=== PATIENT | female | born 1990 | race Caucasian/White ===

== ENCOUNTER 2018-05-13 12:49 | Outpatient (CLI) | payer OTHER ==
[~2018-05-13] VITALS: Ht 154.9 cm; Wt 74.1 kg
[2018-05-13 13:05] VITALS: BP 132/76; PULSE 96; TEMP 98.1
[2018-05-13] MEDS ORDERED: FLINTSTONES COM1 CT1 PO (13:10)
[2018-05-13 13:30] VITALS: BP 122/68; PULSE 93
[2018-05-13 15:20] VITALS: BP 123/72; PULSE 93
== END 2018-05-13 15:20 | disposition home or self-care (01) ==
LOC: LDRO 12:49
DX: O99.89 Other specified diseases and conditions complicating pregnancy, childbirth and the puerperium (principal); M54.89 Other dorsalgia; I10 Essential (primary) hypertension; Z3A.36 36 weeks gestation of pregnancy

== ENCOUNTER 2020-01-05 20:38 | Emergency (ER) | payer OTHER ==
[~2020-01-05] VITALS: Ht 157.5 cm; Wt 61.4 kg
[~2020-01-05 20:38] MED LIST: FLINTSTONES COM1 CT1 PO; MOTRIN 800800 MG/TAB PO; PERCOCET 325 MG1 TA2 PO
[2020-01-05 20:44] VITALS: BP 127/72; TEMP 98.6
[2020-01-05 21:03] LABS: STREP SCREEN NEGATIVE
[2020-01-05 21:22] VITALS: PULSE 90
== END 2020-01-05 21:22 | disposition home or self-care (01) ==
LOC: COL.ER 20:38
PROVIDERS: Family Medicine
DX: J02.9 Acute pharyngitis, unspecified (principal)

== ENCOUNTER 2021-10-24 13:31 | Outpatient (CLI) | payer BC ==
[~2021-10-24] VITALS: Ht 157.5 cm; Wt 72.7 kg
[~2021-10-24 13:31] MED LIST changes: +PREDNISONE20 MG PO
[2021-10-24 13:38] VITALS: BP 129/75; PULSE 96; TEMP 98.1
[2021-10-24 14:25] VITALS: BP 130/65; PULSE 89
--- NOTE | 2021-10-24 14:44 | NUR ---
[id number] PATIENT HERE WITH COMPLAINTS OF RECTAL PRESSURE. ASSESSMENT COMPLETED. EFM ON FHT 148 BABY VERY ACTIVE. NO CONTRACTIONS NOTED. SVE 0/THICK/HIGH. DR HENRY CALLED AND REPORT GIVEN. ORDERS TO DISMISS IF REACTIVE STRIP NOTED. PATIENT DENIES NEEDS.
--- NOTE | 2021-10-24 14:48 | NUR ---
NO CHANGES NOTED. ALL DISCHARGE INSTRUCTIONS GIVEN TO PATIENT WITH VERBAL UNDERSTANDING NOTED. DENIES NEEDS.
== END 2021-10-24 14:25 | disposition home or self-care (01) ==
LOC: LDRO 13:31 → LDR 13:48 → LDRO 14:25
DX: O26.893 Other specified pregnancy related conditions, third trimester (principal); K62.89 Other specified diseases of anus and rectum; Z3A.29 29 weeks gestation of pregnancy
CPT/HCPCS: OP

== ENCOUNTER 2021-12-24 19:57 | Outpatient (CLI) | payer BC ==
[~2021-12-24] VITALS: Ht 157.5 cm; Wt 77.3 kg
[2021-12-24 20:10] VITALS: TEMP 97.9
[2021-12-24 20:30] VITALS: BP 132/83; PULSE 105; TEMP 97.9
--- NOTE | 2021-12-24 20:45 | NUR ---
2000- 31 YO 38.2 WGA, AMBULATORY AND ACCOMPANIED BY SIG. OTHER, . RN ESCORTED TO ROOM AND INSTRUCTIONS GIVEN. PT ORIENTED TO ROOM. PT HERE FOR C/O CTX THAT STARTED AROUND 1700. +FM, +CTX, -LOF, -VB. 2007- EFM AND TOCO APPLIED. 2009- VSS. AFEBRILE. RATES PAIN 03/30. PT ALSO C/O MELGAR R/T CONGESTION. PT DENIES ANY PIH SYMPTOMS. PT REPORTS THAT SHE HAD PRE-E WITH HER 1ST . 2014- SVE PERFORMED FT/50/-3, POSTERIOR 2027- AUDIBLE DECELERATION HEARD. POSITION CHANGE TO LEFT LATERAL. 2029- PT UP TO BR. VOID X1 2039- PT BACK TO BED AND C/O N/V. RT LATERAL. OFFERED PT ZOFRAN, BUT PT DECLINES AT THIS TIME. POC D/W PT FOR A RECHECK AT 2114. 2124- SVE UNCHANGED. 2127- DR. HOLLOWAY NOTIFIED AND WILL WATCH PT FOR ANOTHER HOUR AND DO RECHECK. IF PT UNCHAGED ORDERS REC'D TO DC PT HOME AND IF PT MAKES CERVICAL CHANGE WILL NOTIFY PHYSICIAN. 2129- BIRTHING BALL OFFERED TO PT AND AT BS. CLEAR FLUIDS GIVEN.
[2021-12-24 22:30] VITALS: BP 118/76; PULSE 101; TEMP 97.9
--- NOTE | 2021-12-24 22:43 | NUR ---
2229- PT REPORT CTX PAIN THE SAME. VSS. AFEBRILE. FHTS REACTIVE. PT [place] EVERY 2-4 MINUTES. TOLERATING CTX. SVE PERFORMED AND UNCHANGED. LABOR PRECAUTIONS REVIEWED WITH PT AND SIG. OTHER. ALL QUESTIONS ANSWERED AND DEMONSTRATES UNDERSTANDING OF WHEN TO RETURN BACK TO HOSPITAL. 2242- DISCHARGE INSTRUCTIONS REVIEWED AND SIGNED W/ PT. AMBULATORY, ACCOMPANIED BY SIG.OTHER. PT WALKS OFF UNIT AT 3. DC HOME.
== END 2021-12-24 22:43 | disposition home or self-care (01) ==
LOC: LDRO 19:57 → LDR 20:00 → LDRO 22:43
DX: O62.9 Abnormality of forces of labor, unspecified (principal); Z3A.00 Weeks of gestation of pregnancy not specified
CPT/HCPCS: OP

== ENCOUNTER 2021-12-27 05:25 | Inpatient (IN) | payer BC ==
[~2021-12-27] VITALS: Ht 157.5 cm; Wt 79.5 kg
[2021-12-27] VITALS (34 sets, daily range): BP systolic 95–148; BP diastolic 48–97; PULSE 70–98; TEMP 97.2–97.9
--- NOTE | 2021-12-27 05:30 | NUR ---
0530- 31 yo 38.5 wga: Pt presents to OB via w/c, accompanied by sig. other, Valerio. Pt reports SROM at 0430 and fluid clear. 0540- EFM and [place] applied. 0545- Amniotrace positive and grossly ruptured. Pt unable to tolerate cervical check. 0630- Dr. Keys notified of pt's arrival and status. Orders rec'd to dc pt home. Report given to Afua RN and ARMAAN Celaya/ transfer of care.
--- NOTE | 2021-12-27 05:50 | NUR ---
Ambulatory to unit for scheduled C/S, accompanied by spouse. Oriented to room, monitor, plan of care.
--- NOTE | 2021-12-27 07:30 | NUR ---
0730-Dr. Cardenas to patient room. SVE /-2 Orders to start pit.
--- NOTE | 2021-12-27 11:45 | NUR ---
1145- on unit. Updated on recent exam. Orders to move patient to LL and use stirrup to elevate RL. Repositioned as ordered. MD remains on unit. Recurrent variable decels continue. 1210-SVE by /2. Patient continues to be increasingly uncomfortable despite epdural hand thermal cutter button usage. C.Hermann,MOUNTER HAND to room to evaluate epidural and dose. Repositoned WR.
--- NOTE | 2021-12-27 12:30 | NUR ---
1230-Patient sitting upright for epdural replacement. RN at bedside. Difficulty tracing FHR and contractions due to maternal position and discomfort. RN frequently readjusting EFM. 1242-Repositioned WR, SVE by Dr. Cardenas. 9-10 cm and +1 station. FSE placed by .
--- NOTE | 2021-12-27 13:04 | NUR ---
1304-Deep variable down to 50bpm. patient complete per MD. Patient feeling very sleepy and bp 100/55. 1306-10mg Ephedrine given, see EMAR. 1310-Patient begins pushing with MD at bedside. Moves vertex well. Continued deep variables in FHR. RN assumes pushing with patient. 1315-Dr. Cardenas discusses use of vacuum for assisted delivery. Patient continues to push with contractions. 1327-Vacuum placed on infants head with maternal pushing efforts. head begins to deliver and vacuum removed. 1328-Spontaneous delivery of head immediately follwoed by body. Viable female infant to mothers abdomen. Cord clamed x2 and cut by FOB. Infant to mothers abdomen. Care of assumed by ARMAAN oRgers Apgars 8/9/9. 1335-Spontaneous delivery of intact placenta. Fundal massage firm. Lochia WNL. EBL 150ml. Perineum intact. Sanaz care provided. Updated on plan of care and safety.
[2021-12-27 14:46] LABS: HEMOGLOBIN 11.9 g/dl (12.5-16.0); MEAN CELL VOLUME 86 fl (80.0-100.0); MEAN CORPUSCULAR HEMOGLOBIN 29 pg (27-31); MEAN CORPUSCULAR HGB CONC 33 g/dl (33.0-37.0); PLATELET COUNT 145 K/mm3 (130-400); RED BLOOD COUNT 4.18 M/mm3 (4.10-5.30); REDCELL DISTRIBUTION WIDTH-CV 15.5 % (11.5-14.5)
[2021-12-27 16:00] LABS: ANISOCYTOSIS 1+; BAND 3 % (0-10); EOSINOPHIL 2 % (0-4); LYMPHOCYTE 12 % (20.0-51.0); NEUTROPHILS 81 % (42.0-75.2); PLATELET ESTIMATE NORMAL (NORMAL)
[2021-12-27 16:01] LABS: BURR CELLS 1+
[2021-12-27] MEDS ORDERED: MOTRIN 800800 MG/TAB PO (16:08)
--- NOTE | 2021-12-27 19:00 | NUR ---
1900-Patient up to bathroom with assist x1 and wheelchair. Unable to void. Sanaz care provided. Oriented to postparum room. 0-Patient calls out to use bathroom. Assist x1 to toilet. Voids 300ml, remains in wheelchair sitting up to eat. Reported off to oncoming nurse.
[2021-12-28 03:30] VITALS: BP 111/78; PULSE 78; TEMP 97.8
[2021-12-28 07:30] VITALS: BP 114/65; PULSE 71; TEMP 97.6
--- NOTE | 2021-12-28 09:12 | NUR ---
Initial visit; Parents thanked [employer] Technician for offering congratulations and God's blessings for the of their daughter. [employer] Technician thanked family for choosing [facility].
[2021-12-28 11:30] VITALS: BP 129/76; PULSE 95; TEMP 97.6
--- NOTE | 2021-12-28 15:00 | NUR ---
DISCHARGE TEACHING COMPLETED. PATIENT EDUCATED ON FOLLOW UP APPOINTMENT AND PRESCITPTION. QUESTIONS INVITED AND ANSWERED.
== END 2021-12-28 15:35 | disposition home or self-care (01) | DRG 807 ==
LOC: LDR 05:25 → OB 09:08 → LDR 18:10 → OB 19:00
PROVIDERS: Obstetrics & Gynecology; ADMIT Student in an Organized Health Care Education/Training Program
PROC: 10D07Z6 Extraction of Products of Conception, Vacuum, Via Natural or Artificial Opening (ICD-10-PCS; principal; 2021-12-27)
DX: O99.02 Anemia complicating childbirth (principal); Z37.0 Single live birth; D64.9 Anemia, unspecified; Z3A.38 38 weeks gestation of pregnancy
CPT/HCPCS: J2590; J7120